=== PATIENT | female | born 1975 ===

== ENCOUNTER 2017-04-23 00:01 | Observation (INO) | payer SELFPAY ==
[2017-04-23 00:18] VITALS: BP 154/107; PULSE 117; TEMP 98.6; O2SAT 98
--- NOTE | 2017-04-23 00:53 | ED PDOC ---
HPI: Abdomen Time Seen by Provider: 04/23/17 00:25 Chief Complaint (Nursing): Abdominal Pain Chief Complaint (Provider): Abdominal Pain History Per: Patient History/Exam Limitations: no limitations Onset/Duration Of Symptoms: Days (Six days), Persistent Outside of [place] travel?: No Current Symptoms Are (Timing): Still Present Associated Symptoms: Fever, Loss Of Appetite Additional Complaint(s): 41 y/o female patient presenting to the ED with abdominal pain. Patient states the pain has been persistent for six days and reports associated symptoms including: low grade fever, loss of appetite, abdomen distention and generalized weakness and states she recently started on an antibiotic for treatment of a UTI. Patient's past medical history includes: headaches, migraines and multiple visits to the [facility] and Emergency Department for abdominal pain. Patient also has had a hysterectomy. Past Medical History Reviewed: Historical Data, Nursing Documentation, Vital Signs Vital Signs: Last Vital Signs Temp 98.6 F 04/23/17 00:11 Pulse 117 H 04/23/17 00:11 Resp BP 154/107 H 04/23/17 00:11 Pulse Ox 98 04/23/17 04:36 - Medical History PMH: Gastritis, Kidney Stones, Migraine - Surgical History Other surgeries: Hysterectomy - Family History Family History: States: Unknown Family Hx - Social History Current smoker - smoking cessation education provided: No Alcohol: None Drugs: Denies - Immunization History Hx Tetanus Toxoid Vaccination: No Hx Influenza Vaccination: No Hx Pneumococcal Vaccination: No - Home Medications Home Medications: Ambulatory Orders Medication Instructions Recorded Cephalexin [cephalexin] 500 mg PO Q6 #28 cap 03/14/17 Phenazopyridine [Pyridium] 200 mg PO TID #15 tab 03/14/17 Tylenol 325mg tab 2 tab PO PRN PRN 03/14/17 Naproxen [Naprosyn] 500 mg PO Q12 #14 tab 04/23/17 - Allergies Allergies/Adverse Reactions: Allergies Allergy/AdvReac Type Severity Reaction Status Date / Time No Known Allergies Allergy Verified 03/14/17 11:33 Review of Systems ROS Statement: Except As Marked, All Systems Reviewed And Found Negative Constitutional: Positive for: Fever ((+)Low grade fever), Weakness, Other ((+) Poor Appetite) Cardiovascular: Negative for: Chest Pain Respiratory: Negative for: Shortness of Breath Gastrointestinal: Positive for: Abdominal Pain ((+)Abdominal distention ) Physical Exam - Reviewed Nursing Documentation Reviewed: Yes Vital Signs Reviewed: Yes - Physical Exam Appears: Positive for: Non-toxic, No Acute Distress Head Exam: Positive for: ATRAUMATIC, NORMAL INSPECTION, NORMOCEPHALIC Skin: Positive for: Normal Color, Warm, Dry Cardiovascular/Chest: Positive for: Regular Rate, Rhythm. Negative for: Murmur Respiratory: Positive for: Normal Breath Sounds. Negative for: Respiratory Distress Gastrointestinal/Abdominal: Positive for: Soft, Tenderness ((+)Mild Lower abdominal tenderness), Distended ((+)Mild distention of abdomen). Negative for : Guarding, Rebound Extremity: Positive for: Normal ROM Neurologic/Psych: Positive for: Alert, Oriented. Negative for: Motor/Sensory Deficits - Laboratory Results Result Diagrams: 04/23/17 01:35 04/23/17 01:35 - ECG O2 Sat by Pulse Oximetry: 98 (RA) Pulse Ox Interpretation: Normal Medical Decision Making Medical Decision Making: Time: 39 Initial impression: Abdominal Pain and recent UTI Initial plan: --Abdominal pain PELVIS CT SCAN --EKG --CMP --LIPASE --ED URINE DIPSTICK --EKG-ED --CBC --IOHEXOL --KETOROLAC --HELPOCK INSERTION --ADMIT --URINALYSIS --TRANSVAGINAL ULTRASOUND 0115 Re-evaluation: Patient being placed on ED-OBS for further workups, CT Scan-Abdominal Pain. 0141-Ultrasound Results: US Pelvis, Transvaginal CLINICAL HISTORY: 41 years old, female; Pain; Pelvic pain; Prior surgery; Surgery date: 6+ months ; Surgery type: H/o partial hysterectomy TECHNIQUE: Real-time transvaginal pelvic ultrasound (complete) with image documentation. Transvaginal imaging was used for better evaluation of the endometrium and adnexa. COMPARISON: No relevant prior studies available. FINDINGS: Uterus/cervix: Status post hysterectomy. Right ovary: 2.8 x 2.5 x 2.1 cm. Doppler flow noted. 1.8 cm simple cyst. Left ovary: 2.6 x 2.3 x 1.8 cm. Doppler flow noted. 1.6 cm complex cyst. Free fluid: No free fluid. IMPRESSION: Status post hysterectomy. Bilateral ovarian cysts as above 0503 CT Scan Results Reviewed: EXAM: CT Abdomen and Pelvis With Intravenous Contrast CLINICAL HISTORY: 41 years old, female; Pain; Abdominal pain; Localized; Lower; Additional info: Abd pain TECHNIQUE: Axial computed tomography images of the abdomen and pelvis with intravenous contrast. This CT exam was performed using one or more of the following dose reduction techniques : automated exposure control, adjustment of the mA and/or kV according to patient size, and/ or use of iterative reconstruction technique. Coronal and sagittal reformatted images were created and reviewed. EXAM DATE/TIME: 04/23/2017 1:14 AM COMPARISON: US - TRANSVAGINAL 04/23/2017 12:53:36 AM FINDINGS: Lower thorax: No acute findings. ABDOMEN: Liver: Aside from a subcentimeter hypodensity in the right lobe which is too small to characterize, the liver is unremarkable. Gallbladder and bile ducts: The gallbladder is unremarkable. No biliary ductal dilatation. Pancreas: The pancreas is unremarkable. Spleen: The spleen is unremarkable. Adrenals: The adrenal glands are unremarkable. Kidneys and ureters: Symmetric renal enhancement without hydronephrosis. Stomach and bowel: No evidence of bowel obstruction. No pericolonic inflammatory stranding. Appendix: A normal appendix is identified. PELVIS: Bladder: No focal wall thickening of the urinary bladder. Reproductive: 2 cm left corpus luteal cyst. Post-hysterectomy. ABDOMEN and PELVIS: Intraperitoneal space: Unremarkable. No free air. No significant fluid collection. Bones/joints: No acute osseous abnormality. Soft tissues: No soft tissue swelling. Vasculature: Unremarkable. No abdominal aortic aneurysm. Lymph nodes: No enlarged lymph nodes. IMPRESSION: 1. No acute findings. 2. 2 cm left corpus luteal cyst. 0515 Discharge: Ultrasound and CT scan results reviewed and explained at length to patient as well as the significance, patient will follow up at the gynecology clinic. Re-evaluation. Patient feels better. Discussed results and plan with patient who expresses understanding. Counseling was provided regarding the diagnosis and prognosis. All questions answered and there is agreement with the plan to discharge home with instructions. Patient stable for discharge. Return if symptoms persist or worsen. Diagnosis: Ovarian Cyst and Abdominal Pain Scribe Attestation: Documented by Paris Contreras, acting as a scribe for Jamar Finn MD. Scribe Attestation: All medical record entries made by the Scribe were at my direction and personally dictated by me. I have reviewed the chart and agree that the record accurately reflects my personal performance of the history, physical exam, medical decision making, and the department course for this patient. I have also personally directed, reviewed, and agree with the discharge instructions and disposition. ED OBSERVATION Date of observation admission: 04/23/17 Time of observation admission: :15 - Observation admission statement Patient is being placed in observation because:: Abdominal Pain - Goals of Observation Goals of observation are:: Further Workups, CT Scan. - Progress Note Progress Note: 04/23/17 02:45 Pending further workups. 04/23/17 04:15 Pending further workups. Disposition - Clinical Impression Clinical Impression: Ovarian cyst - Patient ED Disposition Is Patient to be Admitted: No - Disposition Disposition: Routine/Home Disposition Time: :15 Condition: STABLE
[2017-04-23] MEDS ORDERED: Iohexol 240 (50 ml) PO ONE (01:14)
[2017-04-23 01:45] LABS: ALBUMIN 4.1 g/dL (3.5-5.0)
[2017-04-23 01:45] LABS: SQUAMOUS EPITHIAL 27 /hpf (0-5); URINE BACTERIA RARE (<OCC); URINE BILIRUBIN NEGATIVE (NEGATIVE); URINE BLOOD SMALL (NEGATIVE); URINE CLARITY CLOUDY (Clear); URINE COLOR YELLOW (YELLOW); URINE GLUCOSE (UA) NEG (Normal); URINE LEUKOCYTE ESTERASE NEG Leu/uL (Negative); URINE NITRATE NEGATIVE (NEGATIVE); URINE PROTEIN 30 mg/dL (NEGATIVE); URINE UROBILINOGEN 0.2-1.0 mg/dL (0.2-1.0)
[2017-04-23 01:48] LABS: AST/SGOT 24 U/L (14-36); BLOOD UREA NITROGEN 14 mg/dl (7-17); GFR AFRICAN-AMERICAN > 60; GFR NON-AFRICAN AMERICAN > 60
[2017-04-23 01:49] LABS: ALT/SGPT 31 U/L (9-52); CALCIUM 9.1 mg/dL (8.4-10.2); LIPASE 85 U/L (23-300)
[2017-04-23 01:51] LABS: BASO # 0.1 K/uL (0.0-0.2); BASO % 0.6 % (0.0-2.0); EOS # 0.1 K/uL (0.0-0.7); HEMOGLOBIN 12.3 g/dL (12.0-16.0); LYMPH # 2.6 K/uL (1.0-4.3); LYMPH % 27.4 % (20.0-40.0); MEAN CELL VOLUME 88.7 fl (81.0-99.0); MEAN CORPUSCULAR HEMOGLOBIN 29.8 pg (27.0-31.0); MEAN CORPUSCULAR HGB CONC 33.6 g/dL (33.0-37.0); MEAN PLATELET VOLUME 8.2 fl (7.2-11.7); MONO # 0.9 K/uL (0.0-0.8); MONO % 9.1 % (0.0-10.0); NEUT # 5.9 K/uL (1.8-7.0); NEUT % 61.9 % (50.0-75.0); RBC 4.12 Mil/uL (3.80-5.20); RED CELL DISTRIBUTION WIDTH 13.3 % (11.5-14.5); WHITE BLOOD COUNT 9.5 K/uL (4.8-10.8)
[2017-04-23] MEDS ORDERED: Sodium Chloride 0.9% 1,000 ML IV STA (01:52)
[2017-04-23] MEDS ORDERED: Sodium Chloride 0.9% 50 ML IV ONE (03:22)
[2017-04-23] MEDS ORDERED: Iohexol 300 100 ML IJ ONE (03:22)
--- NOTE | 2017-04-23 08:40 | CARD ---
APPROVED REPORT EKG Measurement Heart [id number] PA [id number] [id number] <Conclusion> Normal sinus rhythm with sinus arrhythmia Normal ECG
--- NOTE | 2017-04-23 11:10 | CT ---
PROCEDURE: CT Abdomen and Pelvis with oral and IV contrast. HISTORY: abd pain COMPARISON: Pelvic ultrasound performed 04/23/17 TECHNIQUE: Contiguous axial images of the abdomen and pelvis. Oral and IV contrast was administered. Coronal and Sagittal reformats generated and reviewed. Contrast dose: 95 mL Omnipaque 300 Radiation dose: Total exam DLP = 901.67 mGy-cm. This CT exam was performed using one or more of the following dose reduction techniques: Automated exposure control, adjustment of the mA and/or kV according to patient size, and/or use of iterative reconstruction technique. FINDINGS: LOWER THORAX: No visible consolidation, pleural effusion, or pneumothorax. Small hiatal hernia/distal esophageal wall thickening. LIVER: 4 mm right hepatic lobe hypodensity, too small to characterize ; statistically likely cyst or hemangioma. GALLBLADDER AND BILE DUCTS: Unremarkable. PANCREAS: Unremarkable. SPLEEN: Unremarkable. ADRENALS: Unremarkable. KIDNEYS AND URETERS: The kidneys enhance symmetrically. No hydronephrosis or obstructing renal calculus. BLADDER: The urinary bladder appears unremarkable. REPRODUCTIVE: Uterus is absent, presumably due to hysterectomy. 2 cm probable left ovarian cyst. APPENDIX: The appendix appears within normal limits of caliber. No secondary signs of acute appendicitis. BOWEL: The stomach is nondistended. The bowel loops appear within normal limits of caliber without evidence of intestinal obstruction. PERITONEUM: No significant free fluid. No definite free air. LYMPH NODES: No bulky lymphadenopathy identified. VASCULATURE: No aortic aneurysm. BONES: No acute osseous abnormality is detected. OTHER FINDINGS: Tiny fat containing umbilical hernia. IMPRESSION: 2 cm probable left ovarian cyst. Hysterectomy. Too small to characterize right hepatic lobe hypodensity; statistically likely a cyst or hemangioma. Small hiatal hernia/ distal esophageal wall thickening. Additional findings as above. Preliminary impression was provided by virtual radiologic.
--- NOTE | 2017-04-23 11:14 | US ---
Indication: Pelvic pain Comparison: None available Technique: Transvaginal pelvic sonogram. Findings: The patient is status post hysterectomy. The right ovary measures approximately 2.8 x 2.5 x 2.1 cm and contains 1.8 cm cyst appears grossly simple. The left ovary measures approximately 2.6 x 2.3 x 1.8 cm and contains 1.6 x 1.5 x 1.2 cm complex appearing cyst. Blood flow is demonstrated to both ovaries. Impression: Status post hysterectomy. Complex left ovarian cyst. Simple appearing right ovarian cyst. Six week ultrasound follow-up recommended in order to assess for complete resolution. Preliminary impression was provided by virtual radiologic.
== END 2017-04-23 05:11 | disposition home or self-care (01) ==
LOC: H.ER 00:01 → H.EROBSV 01:18
PROVIDERS: ADMIT Emergency Medicine; ATTEND Emergency Medicine
DX: N83.202 Unspecified ovarian cyst, left side (principal); N83.201 Unspecified ovarian cyst, right side; Z90.710 Acquired absence of both cervix and uterus; Z87.442 Personal history of urinary calculi
CPT/HCPCS: 74177; 76830; 80053; 81003; 81025; 83690; 85025; 93005; 96360; 99284; G0378; J1885; J7040; Q9966; Q9967

== ENCOUNTER 2018-04-15 11:28 | Emergency (ER) | payer SELFPAY ==
[2018-04-15 11:49] VITALS: BP 114/78; PULSE 70; RESP 18; TEMP 98.3; O2SAT 100
[2018-04-15] MEDS ORDERED: Sodium Chloride 0.9% 1,000 ML IV STA (12:11)
--- NOTE | 2018-04-15 12:24 | ED PDOC ---
HPI: Back Time Seen by Provider: 04/15/18 11:57 Chief Complaint (Nursing): Abdominal Pain Chief Complaint (Provider): Back Pain History Per: Patient History/Exam Limitations: no limitations Onset/Duration Of Symptoms: Days (x4) Current Symptoms Are (Timing): Still Present Quality Of Discomfort: "Pain" Pain Scale Rating Of: 6 Previous Symptoms: None Associated Symptoms: None Additional Complaint(s): 42 year old female with a past medical history of urinary tract infection presents to the emergency department complaining of back pain x4 days. Patient states that the pain has worsened over the past 2 days and is now associated with bilateral leg pain. She also reports that prior to the start of her symptoms she had a rash over both forearms. Patient also notes some nocturia, headache and nausea. Patient reports that she took 2 advil tablets for relief of pain but they offered no relief. Denies fever. PMD: Non H Provider Past Medical History Reviewed: Historical Data, Nursing Documentation, Vital Signs Vital Signs: Last Vital Signs Temp 98.3 F 04/15/18 11:48 Pulse 70 04/15/18 11:48 Resp 18 04/15/18 11:48 BP 114/78 04/15/18 11:48 Pulse Ox 100 04/15/18 11:48 - Medical History PMH: Gastritis, Kidney Stones, Migraine - Surgical History Other surgeries: Hysterectomy; Tubal Ligation - Family History Family History: States: Unknown Family Hx - Living Arrangements Living Arrangements: With Family - Social History Current smoker - smoking cessation education provided: No Ex-Smoker (has not smoked in the last 12 months): No Alcohol: None Drugs: Denies - Immunization History Hx Tetanus Toxoid Vaccination: No Hx Influenza Vaccination: No Hx Pneumococcal Vaccination: No - Home Medications Home Medications: Ambulatory Orders Medication Instructions Recorded Cephalexin [cephalexin] 500 mg PO Q6 #28 cap 03/14/17 Phenazopyridine [Pyridium] 200 mg PO TID #15 tab 03/14/17 Tylenol 325mg tab 2 tab PO PRN PRN 03/14/17 Naproxen [Naprosyn] 500 mg PO Q12 #14 tab 04/23/17 - Allergies Allergies/Adverse Reactions: Allergies Allergy/AdvReac Type Severity Reaction Status Date / Time No Known Allergies Allergy Verified 03/14/17 11:33 Review of Systems ROS Statement: Except As Marked, All Systems Reviewed And Found Negative Constitutional: Negative for: Fever Gastrointestinal: Positive for: Nausea Genitourinary Female: Positive for: Other (nocturia) Musculoskeletal: Positive for: Back Pain Skin: Positive for: Rash Neurological: Positive for: Headache Physical Exam - Reviewed Nursing Documentation Reviewed: Yes Vital Signs Reviewed: Yes - Physical Exam Appears: Positive for: Non-toxic, No Acute Distress Head Exam: Positive for: ATRAUMATIC, NORMAL INSPECTION, NORMOCEPHALIC Skin: Positive for: Normal Color, Warm, Dry, Rash (erythematous papular rash in the extensor) Eye Exam: Positive for: Normal appearance, EOMI, PERRL. Negative for: Nystagmus ENT: Positive for: Normal ENT Inspection, Other (moist mucous membranes). Negative for: Nasal Congestion, Tonsillar Exudate, Tonsillar Swelling Neck: Positive for: Normal, Painless ROM, Supple Cardiovascular/Chest: Positive for: Regular Rate, Rhythm, Chest Non Tender. Negative for: Murmur, Tachycardia Respiratory: Positive for: Normal Breath Sounds. Negative for: Rales, Rhonchi, Wheezing, Respiratory Distress Gastrointestinal/Abdominal: Positive for: Bowel Sounds, Soft, Tenderness (mild left sided abdominal tenderness). Negative for: Mass, Guarding, Rebound Back: Positive for: L CVA Tenderness (more noticeable on this side), R CVA Tenderness. Negative for: Vertebral Tenderness, Muscle Spasm Extremity: Positive for: Normal ROM. Negative for: Tenderness, Deformity, Swelling Neurologic/Psych: Positive for: Alert, Oriented, Gait - Laboratory Results Result Diagrams: 04/15/18 12:25 04/15/18 12:25 - ECG O2 Sat by Pulse Oximetry: 100 (RA) Pulse Ox Interpretation: Normal Medical Decision Making Medical Decision Makin Initial Impression 42 year old female presenting with back pain Initial Plan: * CMP * Upreg * Udip * CBC * [place]struct[place] [address] m IV 999 mls/hr * Toradol 4mg IVP * Reevaluation Documented by Tori Lam acting as a scribe for Andreia Miller MD. All medical record entries made by the Scribe were at my direction and personally dictated by me. I have reviewed the chart and agree that the record accurately reflects my personal performance of the history, physical exam, medical decision making, and the department course for this patient. I have also personally directed, reviewed, and agree with the discharge instructions and disposition. 1.15p - patient feeling slightly better although she still has a headache. labs reviewed. no obvious finding of systemic illness. She is still concerned about the bilateral lower leg pains, and rash over her forearms bilaterally. Disposition - Clinical Impression Clinical Impression: Viral syndrome, Dermatitis - Patient ED Disposition Is Patient to be Admitted: No Doctor Will See Patient In The: Office - Disposition Referrals: [facility] [Outside] [facility] [Outside] Disposition Time: 13:15 Condition: STABLE Instructions: Eczema (Atopic Dermatitis), Viral Syndrome (DC) Forms: [facility] (Persian) Print Language: ROMANSH - POA Present On Arrival: None
[2018-04-15 12:36] LABS: BASO % 0.8 % (0.0-2.0); EOS # 0.1 K/uL (0.0-0.7); EOS % 1.8 % (0.0-4.0); HEMOGLOBIN 13.4 g/dL (12.0-16.0); LYMPH # 1.9 K/uL (1.0-4.3); LYMPH % 32.2 % (20.0-40.0); MEAN CELL VOLUME 91.3 fl (81.0-99.0); MEAN CORPUSCULAR HEMOGLOBIN 31.3 pg (27.0-31.0); MEAN CORPUSCULAR HGB CONC 34.2 g/dL (33.0-37.0); MONO # 0.4 K/uL (0.0-0.8); MONO % 7.3 % (0.0-10.0); NEUT # 3.5 K/uL (1.8-7.0); NEUT % 57.9 % (50.0-75.0); NRBC % 0.1 % (0.0-0.0); RBC 4.29 Mil/uL (3.80-5.20); RED CELL DISTRIBUTION WIDTH 13.4 % (11.5-14.5)
[2018-04-15 12:52] LABS: ALB/GLOB RATIO 1.2 (1.0-2.1); ALBUMIN 4.1 g/dL (3.5-5.0); ALT/SGPT 63 U/L (9-52); AST/SGOT 56 U/L (14-36); BLOOD UREA NITROGEN 11 mg/dl (7-17); CALCIUM 9.2 mg/dL (8.4-10.2); GFR AFRICAN-AMERICAN > 60; GFR NON-AFRICAN AMERICAN > 60
[2018-04-15 13:59] LABS: SQUAMOUS EPITHIAL 10 /hpf (0-5); URINE BACTERIA RARE (<OCC); URINE BILIRUBIN NEGATIVE (NEGATIVE); URINE BLOOD NEGATIVE (NEGATIVE); URINE CLARITY SLIGHTY-CLOUDY (Clear); URINE COLOR STRAW (YELLOW); URINE GLUCOSE (UA) NEG (Normal); URINE LEUKOCYTE ESTERASE TRACE Leu/uL (Negative); URINE PROTEIN NEGATIVE (NEGATIVE); URINE UROBILINOGEN 0.2-1.0 mg/dL (0.2-1.0)
--- NOTE | 2018-04-15 14:25 | RAD ---
PROCEDURE: Radiographs of the chest and abdomen (obstructive series) HISTORY: left sided abd pain x 4-5 days COMPARISON: CT scan of the abdomen pelvis dated 04/23/2017; no prior imaging of the chest TECHNIQUE: AP radiograph of the chest, with upright and supine radiographs of the abdomen. FINDINGS: CHEST: Lungs: Clear. Cardiovascular: Normal size heart. No pulmonary vascular congestion. Pleura: No pleural fluid. No pneumothorax. Other findings: None. ABDOMEN AND PELVIS: Bowel: Prominent amount of retained colonic stool. Unremarkable bowel gas pattern. No evidence of mechanical obstruction. Free air: None. Bones: Unremarkable. Other findings: Nonspecific curvilinear calcifications in the right hemipelvis. IMPRESSION: Unremarkable radiographs of chest and abdomen. No evidence of mechanical bowel obstruction. Prominent amount of retained colonic stool.
== END 2018-04-15 14:07 | disposition home or self-care (01) ==
LOC: SUPCPDRO 11:28 → H.ER 11:28
DX: B34.9 Viral infection, unspecified (principal); L30.9 Dermatitis, unspecified; R11.0 Nausea; R51 Headache
CPT/HCPCS: 74022; 80053; 81003; 81025; 85025; 87086; 87181; 96374; 96375; 99285; J1885; J2405; J7030

== ENCOUNTER 2018-08-04 22:24 | Emergency (ER) | payer SELFPAY ==
[2018-08-04 22:37] VITALS: BP 116/71; PULSE 82; RESP 16; TEMP 98.9; O2SAT 99
[2018-08-04] MEDS ORDERED: Apap-Butalbital-Caffeine 325-50-40mg Tab PO STA (22:57)
[2018-08-04] MEDS ORDERED: Apap-Butalbital-Caffeine 325-50-40mg Tab ONE (23:00)
--- NOTE | 2018-08-04 23:13 | ED PDOC ---
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 States she feels a band-like constriction across her forehead that feels "hot", also with blurry vision and photophobia. States she feels nauseated as well. States she feels a stiffness to her upper back, shoulders, and neck. Denies fevers. Headache is gradual in onset, non-thunderclap. States she has only been taking APAP, took only 2 pills today. Takes no other medications. PMD: [facility] Past Medical History Reviewed: Historical Data, Nursing Documentation, Vital Signs Vital Signs: Last Vital Signs Temp 98.9 F 08/04/18 22:32 Pulse 82 08/04/18 22:32 Resp 16 08/04/18 22:32 BP 116/71 08/04/18 22:32 Pulse Ox 99 08/04/18 22:32 - Medical History PMH: Gastritis, Kidney Stones, Migraine - Family History Family History: States: Unknown Family Hx - Immunization History Hx Tetanus Toxoid Vaccination: No Hx Influenza Vaccination: No Hx Pneumococcal Vaccination: No - Home Medications Home Medications: Ambulatory Orders Medication Instructions Recorded Cephalexin [cephalexin] 500 mg PO Q6 #28 cap 03/14/17 Phenazopyridine [Pyridium] 200 mg PO TID #15 tab 03/14/17 Tylenol 325mg tab 2 tab PO PRN PRN 03/14/17 Naproxen [Naprosyn] 500 mg PO Q12 #14 tab 04/23/17 RX: Naproxen [Naprosyn] 500 mg PO BID PRN #20 tablet 04/15/18 Triamcinolone 0.1% [Triamcinolone 0.1 appl TP BID #1 tube 04/15/18 Acetonide] Aspirin/Acetaminophen/Caffeine 1 each PO Q8 PRN #30 tablet 08/05/18 [Excedrin Migraine Geltab] Pseudoephedrine HCl [Sudafed 120 mg PO Q12 #20 tablet.er 08/05/18 12-Hour] - Allergies Allergies/Adverse Reactions: Allergies Allergy/AdvReac Type Severity Reaction Status Date / Time No Known Allergies Allergy Verified 08/04/18 22:32 Review of Systems ROS Statement: Except As Marked, All Systems Reviewed And Found Negative Neurological: Positive for: Headache Physical Exam - Reviewed Nursing Documentation Reviewed: Yes Vital Signs Reviewed: Yes - Physical Exam Appears: Positive for: Well, Non-toxic, No Acute Distress, Uncomfortable Head Exam: Positive for: ATRAUMATIC, NORMAL INSPECTION, NORMOCEPHALIC Skin: Positive for: Normal Color, Warm, DRY Eye Exam: Positive for: EOMI, Normal appearance, PERRL ENT: Positive for: Normal ENT Inspection Neck: Positive for: Normal, Painless ROM Cardiovascular/Chest: Positive for: Regular Rate, Rhythm Respiratory: Positive for: CNT, Normal Breath Sounds Gastrointestinal/Abdominal: Positive for: Normal Exam, Soft Back: Positive for: Normal Inspection Extremity: Positive for: Normal ROM Neurologic/Psych: Positive for: 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 Negative for: Motor/Sensory Deficits - ECG O2 Sat by Pulse Oximetry: 99 Pulse Ox Interpretation: Normal Medical Decision Making Medical Decision MakinPM Patient with history of migraines presenting wit headache --Normal vitals, well appearing, nontoxic --Exam negative, normal neuro exam --DDx includes but not limited to migraine, tension headache, cluster --CT/labs not necessary at this time given history and benign presentation --Will treat symptomatically with fioricet and re-eval 0100 --Patient still having PACHECO, IV toradol and reglan ordered 0200 --Patient's symptoms resolved --States she's also having cough/cold symptoms which may be triggering her headaches --Recommended symptomatic care at home and followup with PMD --Very well appearing upon discharge Disposition - Clinical Impression Clinical Impression: Migraine - Disposition Referrals: Tyra Silvestre MD [Family Provider] - Disposition: Routine/Home Disposition Time: 02:00 Condition: IMPROVED Prescriptions: Aspirin/Acetaminophen/Caffeine [Excedrin Migraine Geltab] 1 each PO Q8 PRN #30 tablet PRN Reason: Pain, Moderate (4-7) Pseudoephedrine HCl [Sudafed 12-Hour] 120 mg PO Q12 #20 tablet.er Instructions: Migraine Headache (DC) Forms: [facility] (Kazakh) Print Language: CAMBODIAN
[2018-08-05] MEDS ORDERED: Sodium Chloride 0.9% 1,000 ML IV STA (00:09)
== END 2018-08-05 02:12 | disposition home or self-care (01) ==
LOC: H.ER 22:24
DX: G43.909 Migraine, unspecified, not intractable, without status migrainosus (principal); Z87.442 Personal history of urinary calculi
CPT/HCPCS: 81025; 82948; 96361; 96374; 96375; 99285; J1885; J2765; J7030

== ENCOUNTER 2018-11-01 20:39 | Emergency (ER) | payer SELFPAY ==
[2018-11-01] MEDS ORDERED: Sodium Chloride 0.9% 1,000 ML IV STA (21:44)
[2018-11-01] MEDS ORDERED: Iohexol 300 100 ML IJ ONE (22:11)
[2018-11-01] MEDS ORDERED: Sodium Chloride 0.9% 50 ML IV ONE (22:12)
[2018-11-01 22:14] LABS: BASO # 0.1 K/uL (0.0-0.2); BASO % 1.3 % (0.0-2.0); EOS # 0.1 K/uL (0.0-0.7); EOS % 1.1 % (0.0-4.0); HEMOGLOBIN 13.6 g/dL (12.0-16.0); LYMPH # 2.8 K/uL (1.0-4.3); LYMPH % 39.1 % (20.0-40.0); MEAN CELL VOLUME 92.3 fl (81.0-99.0); MEAN CORPUSCULAR HEMOGLOBIN 30.8 pg (27.0-31.0); MEAN CORPUSCULAR HGB CONC 33.4 g/dL (33.0-37.0); MEAN PLATELET VOLUME 7.6 fl (7.2-11.7); MONO # 0.5 K/uL (0.0-0.8); MONO % 7.2 % (0.0-10.0); NEUT # 3.6 K/uL (1.8-7.0); NEUT % 51.3 % (50.0-75.0); RBC 4.43 Mil/uL (3.80-5.20); RED CELL DISTRIBUTION WIDTH 13.2 % (11.5-14.5)
[2018-11-01 22:16] LABS: ALB/GLOB RATIO 1.2 (1.0-2.1); ALBUMIN 4.5 g/dL (3.5-5.0); ALT/SGPT 43 U/L (9-52); AST/SGOT 36 U/L (14-36); BLOOD UREA NITROGEN 16 mg/dl (7-17); CALCIUM 9.7 mg/dL (8.4-10.2); GFR NON-AFRICAN AMERICAN > 60; LIPASE 79 U/L (23-300)
--- NOTE | 2018-11-01 22:19 | ED PDOC ---
HPI: Abdomen Time Seen by Provider: 11/01/18 21:00 Chief Complaint (Nursing): Female Genitourinary Chief Complaint (Provider): left upper abdominal and flank pain History Per: Patient, Audit Reviewer (judy [id number]) History/Exam Limitations: no limitations Onset/Duration Of Symptoms: Gradual (+1 month) Current Symptoms Are (Timing): Intermittent Episodes Location Of Pain/Discomfort: LLQ, Other (L flank/back) Quality Of Discomfort: Sharp Associated Symptoms: Nausea, Loss Of Appetite, Constipation, Urinary Symptoms. denies: Vomiting, Diarrhea Exacerbating Factors: Movement Alleviating Factors: None Last Bowel Movement: Today Additional Complaint(s): 43yo female c/o left upper abdominal pain, flank pain radiating to back associated w nausea and dizziness intermittent for one month, worse w sleeping on that side. Denies rash, fever, syncope, weakness, trauma/falls or numbness. Past Medical History Reviewed: Historical Data, Nursing Documentation, Vital Signs Vital Signs: Last Vital Signs Temp 97.7 F 11/01/18 20:44 Pulse 82 11/01/18 20:44 Resp 18 11/01/18 20:44 BP 132/80 11/01/18 20:44 Pulse Ox 100 11/01/18 20:44 - Medical History PMH: Gastritis, Kidney Stones, Migraine - Surgical History Other surgeries: hysterectomy - Family History Family History: States: Unknown Family Hx - Immunization History Hx Tetanus Toxoid Vaccination: No Hx Influenza Vaccination: No Hx Pneumococcal Vaccination: No - Home Medications Home Medications: Ambulatory Orders Medication Instructions Recorded Cephalexin [cephalexin] 500 mg PO Q6 #28 cap 03/14/17 Phenazopyridine [Pyridium] 200 mg PO TID #15 tab 03/14/17 Tylenol 325mg tab 2 tab PO PRN PRN 03/14/17 Naproxen [Naprosyn] 500 mg PO Q12 #14 tab 04/23/17 RX: Naproxen [Naprosyn] 500 mg PO BID PRN #20 tablet 04/15/18 Triamcinolone 0.1% [Triamcinolone 0.1 appl TP BID #1 tube 04/15/18 Acetonide] Aspirin/Acetaminophen/Caffeine 1 each PO Q8 PRN #30 tablet 08/05/18 [Excedrin Migraine Geltab] Pseudoephedrine HCl [Sudafed 120 mg PO Q12 #20 tablet.er 08/05/18 12-Hour] Cephalexin [cephalexin] 500 mg PO BID #14 cap 11/01/18 RX: Omeprazole 20 mg PO DAILY #20 capsule. 11/01/18 RX: traMADol [Ultram] 50 mg PO TID #10 tab 11/01/18 - Allergies Allergies/Adverse Reactions: Allergies Allergy/AdvReac Type Severity Reaction Status Date / Time No Known Allergies Allergy Verified 08/04/18 22:32 Review of Systems Constitutional: Negative for: Fever Eyes: Negative for: Vision Change ENT: Negative for: Throat Pain Cardiovascular: Negative for: Chest Pain Respiratory: Negative for: Shortness of Breath Gastrointestinal: Positive for: Nausea, Abdominal Pain. Negative for: Vomiting Genitourinary Female: Positive for: Dysuria Musculoskeletal: Positive for: Back Pain, Leg Pain. Negative for: Neck Pain, Sh oulder Pain Skin: Negative for: Rash, Lesions, Jaundice Neurological: Positive for: Dizziness. Negative for: Weakness, Seizures, Headache Physical Exam - Reviewed Nursing Documentation Reviewed: Yes Vital Signs Reviewed: Yes - Physical Exam Appears: Positive for: Well, Non-toxic, No Acute Distress Head Exam: Positive for: ATRAUMATIC, NORMAL INSPECTION, NORMOCEPHALIC Skin: Positive for: Normal Color, Warm, DRY Eye Exam: Positive for: EOMI, Normal appearance, PERRL ENT: Positive for: Normal ENT Inspection Neck: Positive for: Normal, Painless ROM Cardiovascular/Chest: Positive for: Regular Rate, Rhythm Respiratory: Positive for: CNT, Normal Breath Sounds Gastrointestinal/Abdominal: Positive for: Soft, Tenderness (+LUQ tenderness). Negative for: Guarding Back: Positive for: L CVA Tenderness. Negative for: R CVA Tenderness, Vertebral Tenderness Extremity: Positive for: Normal ROM Neurologic/Psych: Positive for: Alert, Oriented. Negative for: Motor/Sensory Deficits - Laboratory Results Result Diagrams: 11/01/18 22:04 11/01/18 22:04 Lab Results: Total Bilirubin 0.6 mg/dl (0.2-1.3) 11/01/18 22:04 AST 36 U/L (14-36) D 11/01/18 22:04 ALT 43 U/L (9-52) 11/01/18 22:04 Alkaline Phosphatase 61 U/L (38-126) 11/01/18 22:04 Total Protein 8.4 G/DL (6.3-8.2) H 11/01/18 22:04 Albumin 4.5 g/dL (3.5-5.0) 11/01/18 22:04 Globulin 3.9 gm/dL (2.2-3.9) 11/01/18 22:04 Albumin/Globulin Ratio 1.2 (1.0-2.1) 11/01/18 22:04 Lipase 79 U/L (23-300) 11/01/18 22:04 Urine dip results: Positive for: Leukocyte Esterase (trace) - ECG ECG: Positive for: Interpreted By Me ECG Rhythm: Positive for: Normal ST Segment, Sinus Rhythm, Nonspecific Changes Interpretation Of Abn EKG: PVC Rate: 71 O2 Sat by Pulse Oximetry: 100 Pulse Ox Interpretation: Normal Medical Decision Making Medical Decision Making: workup for atypical LUQ pain/ back pain labs reviewed unremarkable UDip +trace leuks EXAM: CT Abdomen and Pelvis with IV contrast CLINICAL HISTORY: Lt flank pain, worsening nausea TECHNIQUE: Axial computed tomography images of the abdomen and pelvis with intravenous contrast. CONTRAST: With intravenous contrast. Oral contrast was not utilized. COMPARISON: Comparison is made to prior examination dated 05/12/2018 and its report was reviewed. FINDINGS: LUNG BASES: The lung bases appear clear. No pleural effusions are seen. LIVER: A tiny 4.0 mm hypodense lesion is again seen in the posterior right hepatic lobe which remains too small to characterize accurately by CT; likely consistent with a tiny cyst or hemangioma. Otherwise, the liver appears unremarkable. GALLBLADDER AND BILE DUCTS: The gallbladder appears within normal limits. No radioopaque gallstones are seen. No biliary ductal dilatation is evident. PANCREAS: Unremarkable. SPLEEN: Unremarkable. ADRENAL GLANDS: Unremarkable. KIDNEYS, URETERS, AND BLADDER: The kidneys appear within normal limits. There is no hydronephrosis or hydroureter. No urinary calculi are seen. STOMACH AND BOWEL: A small hiatal hernia is again demonstrated. Mucosal edematous thickening is seen in the lower esophagus at the esophago-gastric junction suspicious for GERD. Unremarkable appearance of the stomach and bowel. No evidence of bowel obstruction. APPENDIX: No evidence of acute appendicitis on CT examination. PERITONEUM: No free fluid. No free air. A very tiny umbilical hernia is again noted which contains fat. LYMPH NODES: No lymphadenopathy is evident. REPRODUCTIVE: Status post hysterectomy. There is a suspected 1.3 cm follicular cyst within the left ovary. VASCULATURE: No evidence of abdominal aortic aneurysm. BONES: No aggressive appearing osseous lesion. No acute osseous pathology evident. Incidental note is made of left eccentric bulging of the annulus fibrosus at L5- S1. This finding is identified on the prior examination and appears unchanged. IMPRESSION: 1. No acute pathology. 2. Small hiatal hernia with suspected component of GERD at the esophagogastric junction. 3. Suspected tiny cyst or hemangioma measuring 4.0 mm in the posterior right hepatic lobe. 4. Status post hysterectomy. 5. Suspected 1.3 cm left ovarian follicular cyst. 6. Mild left eccentric bulging of the annulus fibrosus at L5-S1. This finding remains unchanged in appearance. Electronically signed on Nov 01, 2018 11:26:09 PM EST by: Cade Whittaker M.D., PEDRO Certified By [facility] & [facility] Fellowship Trained MRI and CT Specialist Iniitiate omeprazole and keflex for GERD seen on CT and UTI Refer GI/ clinic for endoscopy or further testing Rx tramadol for pain avoid NSAIDs for now Disposition - Clinical Impression Clinical Impression: Flank pain, GERD (gastroesophageal reflux disease), UTI (urinary tract infection) - Patient ED Disposition Is Patient to be Admitted: No Counseled Patient/Family Regarding: Studies Performed, Diagnosis, Need For Followup, Rx Given - Disposition Referrals: [facility] [Outside] Disposition: Routine/Home Disposition Time: 23:34 Condition: GOOD Additional Instructions: FOLLOWUP WITH CLINIC FOR FURTHER TESTING AND TREATMENT. RETURN TO ER FOR ANY NEW OR WORSENING SYMPTOMS. Prescriptions: Cephalexin [cephalexin] 500 mg PO BID #14 cap RX: Omeprazole 20 mg PO DAILY #20 capsule. RX: traMADol [Ultram] 50 mg PO TID #10 tab Instructions: Urinary Tract Infections in Adults, Flank Pain (DC), Acid Reflux (Gastroesophageal Reflux Disease) in Adults Forms: [employer] (Kiswahili), [facility] ED School/Work Excuse Print Language: WELSH
[2018-11-02 00:59] VITALS: BP 108/67; RESP 16; TEMP 97.8
--- NOTE | 2018-11-02 07:17 | CARD ---
APPROVED REPORT Date of service: 11/01/2018 EKG Measurement Heart [id number] <Conclusion> Sinus rhythm with occasional premature atrial complexes Otherwise normal ECG
--- NOTE | 2018-11-02 10:30 | CT ---
Date of service: 11/01/2018 PROCEDURE: CT Abdomen and Pelvis with contrast HISTORY: L flank pain x1 month, worsening, nausea COMPARISON: CT scan of the abdomen and pelvis dated 05/12/2018. TECHNIQUE: Contrast dose: 95 mL Omnipaque 300 Radiation dose: Total exam DLP = 722.86 mGy-cm. This CT exam was performed using one or more of the following dose reduction techniques: Automated exposure control, adjustment of the mA and/or kV according to patient size, and/or use of iterative reconstruction technique. FINDINGS: LOWER THORAX: Unremarkable. LIVER: Unremarkable. No gross lesion or ductal dilatation. GALLBLADDER AND BILE DUCTS: Unremarkable. PANCREAS: Unremarkable. No gross lesion or ductal dilatation. SPLEEN: Unremarkable. ADRENALS: Unremarkable. No mass. KIDNEYS AND URETERS: Unremarkable. No hydronephrosis. No solid mass. VASCULATURE: Unremarkable. No aortic aneurysm. No aortic atherosclerotic calcification or mural plaque present. BOWEL: Unremarkable. No obstruction. No gross mural thickening. APPENDIX: Normal appendix. PERITONEUM: Unremarkable. No free fluid. No free air. LYMPH NODES: Unremarkable. No enlarged lymph nodes. BLADDER: Unremarkable. REPRODUCTIVE: Prior hysterectomy. 1.3 cm involuting left corpus luteal follicle. BONES: L5-S1 disc herniation. No acute fracture. OTHER FINDINGS: None. IMPRESSION: 1.3 cm involuting left corpus luteal follicle. No obstructive uropathy or evidence of recently passed genitourinary calculus. No acute abdominal pelvic pathology. Additional stable findings as above.
--- NOTE | 2018-11-02 10:48 | RAD ---
Date of service: 11/01/2018 HISTORY: L flank and chest discomfort COMPARISON: Comparison made with the CT scan of the abdomen pelvis 11/01/2018 which imaged both lung bases. TECHNIQUE: Chest PA and lateral FINDINGS: LUNGS: No active pulmonary disease. PLEURA: No significant pleural effusion identified. No pneumothorax apparent. CARDIOVASCULAR: No aortic atherosclerotic calcification present. Normal cardiac size. No pulmonary vascular congestion. OSSEOUS STRUCTURES: Minor multilevel degenerative spondylosis of the thoracic spine VISUALIZED UPPER ABDOMEN: Normal. OTHER FINDINGS: None. IMPRESSION: No active disease.
[2018-11-02 13:59] VITALS: PULSE 71; O2SAT 100
== END 2018-11-02 01:19 | disposition home or self-care (01) ==
LOC: H.ER 20:39
DX: R10.32 Left lower quadrant pain (principal); K21.9 Gastro-esophageal reflux disease without esophagitis; N39.0 Urinary tract infection, site not specified; N83.292 Other ovarian cyst, left side; K44.9 Diaphragmatic hernia without obstruction or gangrene; Z79.899 Other long term (current) drug therapy
CPT/HCPCS: 71046; 74177; 80053; 83690; 84484; 85025; 93005; 96361; 96374; 96375; 99283; J1885; J2405; J7030; Q9967